=== PATIENT | male | born 1965 | race Caucasian/White ===

== ENCOUNTER 2020-12-16 06:26 | Day surgery (SDC) | payer BC, MEDICAID ==
[2020-12-16] MEDS ORDERED: Sodium Chloride 0.9% 1,000 ML IV SCH (07:00)
[2020-12-16] MEDS ORDERED: Propofol 200 MG/20 ML SDV ONE (07:19)
[2020-12-16] MEDS ORDERED: Midazolam 1 MG/ML 2 ML SDV ONE (07:19)
[2020-12-16] MEDS ORDERED: fentaNYL 100 MCG/2 ML SDV ONE (07:19)
--- NOTE | 2020-12-16 09:42 | OR ---
DATE OF PROCEDURE: 12/16/2020 SURGEON: Ace Rosales MD PROCEDURE: Colonoscopy. FINDINGS: 1. Extensive diverticulosis throughout entire colon. 2. No other gross abnormalities. COMPLICATIONS: None. POULTRY DRESSER: None. PREOPERATIVE DIAGNOSIS: Family history of colorectal cancer. POSTOPERATIVE DIAGNOSIS: Family history of colorectal cancer. RISKS: Risks, benefits, alternatives, and limitations including, but not limited to infection, bleeding, and perforation along with false positives and false negatives were explained to the patient and wished to proceed. PROCEDURE IN DETAIL: The patient was placed in left lateral decubitus position. Digital rectal exam was performed without abnormality. Scope was introduced and advanced atraumatically to the ileocecal valve. A photo was taken of this. Scope was brought back to the ascending, transverse, descending colon, and retroflexed. The diverticulosis was described as extensive without evidence of diverticulitis or bleeding. This was throughout the entire colon from the cecum to the rectum. No old or new blood. No masses. No polyps. No colitis. Prep was good, approximately 95% of the luminal surface could be seen. No abnormalities on retroflexion. Greater than 8 minutes was spent removing the scope. The patient tolerated the procedure well. Ace Rosales MD /[id number]
== END 2020-12-16 09:13 | disposition home or self-care (01) ==
LOC: JP.SDS 06:26
PROVIDERS: ATTEND Surgery
DX: Z12.11 Encounter for screening for malignant neoplasm of colon (principal); K57.30 Diverticulosis of large intestine without perforation or abscess without bleeding; Z80.0 Family history of malignant neoplasm of digestive organs; F17.200 Nicotine dependence, unspecified, uncomplicated
CPT/HCPCS: 45378; J2250; J2704; J3010; J7030